=== PATIENT | female | born 2000 | race Caucasian/White ===

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

== ENCOUNTER 2020-02-15 03:35 | Emergency (ER) | payer OTHER, SELFPAY ==
[2020-02-15] MEDS ORDERED: Acetaminophen 500 MG TAB ONE ×2 (04:03)
[2020-02-15] MEDS ORDERED: Benzonatate 100 MG CAP ONE (05:33)
[2020-02-15] MEDS ORDERED: Ondansetron ODT 4 MG TAB ONE (05:33)
--- NOTE | 2020-02-15 07:33 | RAD ---
Exam: Chest one view HISTORY:Cough Comparison: None FINDINGS: Cardiac silhouette: Normal Aorta: Unremarkable Pulmonary vessels: Normal Costophrenic angles: Clear LUNGS: No masses or consolidation. Pneumothorax: None Osseous abnormalities: None IMPRESSION: No acute cardiopulmonary process.
[2020-02-15 18:21] LABS: SARS-CoV-2 MS2 Positive; SARS-CoV-2 N Gene Negative; SARS-CoV-2 S Gene Negative; SARS-CoV-2 orf1ab Negative
== END 2020-02-15 05:45 | disposition home or self-care (01) ==
LOC: MADERS 03:35
DX: B34.9 Viral infection, unspecified (principal); F17.210 Nicotine dependence, cigarettes, uncomplicated; Z20.828 Contact with and (suspected) exposure to other viral communicable diseases
CPT/HCPCS: 71045; 87081; 87430; 87635; 87804; Q0162; U0002

== ENCOUNTER 2020-02-16 18:58 | Emergency (ER) | payer SELFPAY ==
[2020-02-16 19:43] LABS: Bilirubin Small (Negative); Blood, Urine Trace (Negative); Clarity Slightly Cloudy (Clear); Glucose, Urine (Dipstick) Negative (Negative); Leukocyte Trace (Negative); Nitrite Negative (Negative); Protein, Urine (Dipstick) 100 mg/dL (Neg-Trace)
[2020-02-16 19:43] LABS: BHCG - Serum Negative (NEGATIVE); Pregs Control Background? CLEAR/WHITE (CLR/WHITE); Pregs Control Bar Appear? YES (CONTROL BAR)
[2020-02-16 19:46] LABS: Band 19 % (5-11); Hemoglobin 12.2 g/dL (12.0-16.0); Hypochromia SLIGHT = 6-15 cells (100X) (0-5/hpf); Lymphocytes 2 % (28-48); MDiff Complete? YES; Mean Corpuscular HGB CONC 32.4 g/dL (32.0-36.0); Mean Corpuscular Hemoglobin 29.5 pg (25.0-35.0); Mean Corpuscular Volume 91.2 fL (78.0-98.0); Mean Platelet Volume 7.4 fL (7.4-10.4); Monocytes 4 % (0-4); Neutrophil 75 % (31-61); Platelet Count 305 thou/uL (130-400); Platelet Morphology Comment Appears Adequate; RBC Distribution Width 12.9 % (11.5-14.5); Red Blood Cell (RBC) Count 4.12 mill/uL (4.00-5.20); White Blood Cell (WBC) Count 27.2 thou/uL (4.8-10.8)
[2020-02-16 19:48] LABS: Bacteria/HPF 3+ HPF (None Seen); WBC/HPF 21-50 HPF (0-3)
[2020-02-16] MEDS ORDERED: Vancomycin HCl 750 MG VIAL ONE (19:48)
[2020-02-16] MEDS ORDERED: Cefepime 2 GM VIAL ONE (19:48)
[2020-02-16] MEDS ORDERED: Ketorolac Tromethamine 30 MG/ML VIAL ONE (19:48)
[2020-02-16] MEDS ORDERED: Vancomycin HCl 500 MG VIAL ONE (19:48)
[2020-02-16 19:49] LABS: RBC/HPF 0-3 HPF (0-3)
[2020-02-16] MEDS ORDERED: Sodium Chloride 0.9% 250 ML 250 ML ONE (19:49)
[2020-02-16] MEDS ORDERED: Sodium Chloride 0.9% 200 ML ONE (19:49)
--- NOTE | 2020-02-16 19:49 | RAD ---
RADIOGRAPH CHEST 1 VIEW: 02/16/20 HISTORY: 20-year-old female with fever. FINDINGS: The visualized lung conway are clear. The cardiomediastinal silhouette and hilar shadows are normal. The lateral costophrenic angles are sharp. The osseous structures appear normal. There is no pneu mothorax. IMPRESSION: Negative. jn [] POS: JIN
[2020-02-16 19:50] LABS: ALT (SGPT) 16 U/L (8-55); AST (SGOT) 24 U/L (5-34); Albumin 3.7 g/dL (3.5-5.0); Alkaline Phosphatase 89 U/L (40-100); Anion Gap 18 mmol/L (10-20); BUN (Urea Nitrogen) 27 mg/dL (7.0-18.7); Bilirubin, Total 0.5 mg/dL (0.2-1.2); Calc. Creatinine Clearance 0 mL/min (70-130); Carbon Dioxide 21 mmol/L (22-29); Chloride 101 mmol/L (98-107); Estimated GFR-MDRD 48; Globulin 3.1 g/dL (2.4-3.5); Glucose 111 mg/dL (70-105); Lipase 69 U/L (8-78); Magnesium 1.5 mg/dL (1.7-2.2); Protein, Total 6.8 g/dL (6.0-8.3); Sodium 137 mmol/L (136-145)
[2020-02-16 20:22] LABS: Base Excess-Venous -2.1 mmol/L (-2.0 to 3.0); Calcium, Ionized 1.02 mmol/L (See Comments:); Chloride 103 mmol/L (98-107); Hemoglobin - Calc 13.2 g/dL (12.0-16.0); Sodium 136 mmol/L (138-145); T. Carbon Dioxide 23.1 mmol/L (22.0-28.0); vO2 Saturation-calc 53.8 % (60.0-85.0)
[2020-02-16] MEDS ORDERED: Sodium Chloride 0.9% 3,000 ML ONE (20:41)
== END 2020-02-16 21:06 | disposition short-term general hospital (02) ==
LOC: MADERS 18:58
DX: A41.9 Sepsis, unspecified organism (principal); F32.9 Major depressive disorder, single episode, unspecified; F17.210 Nicotine dependence, cigarettes, uncomplicated
CPT/HCPCS: 36415; 71045; 80053; 81003; 81015; 82330; 82803; 83605; 83690; 83735; 84703; 85025; 87040; 93005; 96361; 96365; 96375; J0692; J1885; J3370; J3490; J7050